=== PATIENT | male | born 1975 | race Two or more races ===

== ENCOUNTER 2017-05-27 03:00 | Emergency (ER) | payer OTHER ==
[2017-05-27] MEDS: predniSONE 20 MG TAB PO (05:28)
[2017-05-27] MEDS: IPRATROPIUM (NEB) 0.5 MG/2.5 ML AMP NEB (05:44)
[2017-05-27] MEDS: ALBUTEROL 0.5% (NEB) 2.5 MG/0.5 ML AMP INH (05:44)
== END 2017-05-27 08:19 | disposition home or self-care (01) ==
LOC: FTE 03:00
DX: J20.9 Acute bronchitis, unspecified (principal); J45.901 Unspecified asthma with (acute) exacerbation
CPT/HCPCS: 71045; 94644; 99284-25